=== PATIENT | male | born 1970 | race Caucasian/White ===

== ENCOUNTER 2020-01-03 06:49 | Emergency (ER) | payer SELFPAY ==
[2020-01-03 07:05] VITALS: BP 159/101; PULSE 73; RESP 20; TEMP 36.6; O2SAT 97
--- NOTE | 2020-01-03 07:17 | ED.UPPEXIN ---
HPI - Extremity Injury (Upper) General Chief Complaint: Extremity Injury, Upper Stated Complaint: arm pain Source: patient History of Present Illness HPI narrative: Right shoulder pain radiating down to wrist, onset 5 days ago, constant. Onset while laying down linda. Works construction, lifting drywall, et cetera. No activities make it worse. Putting hands behind head does not decrease the pain. Range of motion is not limited. He denies numbness or weakness in his arms or hands. Has not taken medicine for this. States he's never been told he had an elevated blood pressure Related Data Home Medications Medication Instructions Recorded Confirmed No Home Medications 01/03/20 01/03/20 Review of Systems Constitutional: Constitutional: Reports no additional constitutional complaints Musculoskeletal: Musculoskeletal: Reports no additional musculoskeletal complaints, Denies back pain, Denies arthralgias and Denies joint swelling Integumentary/Breasts: Skin/Breast: Denies rash Neurologic: Denies focal weakness and Denies numbness Comments: Denies numbness or pain in hands/wrist. [facility] Past Medical History Medical History (Updated 01/03/20 @ 07:30 by Ming De La Fuente MD) Patient denies significant medical history Family History Family History (Updated 01/03/20 @ 07:31 by Ming De La Fuente MD) Father No problems noted. Social History Social History (Updated 01/03/20 @ 07:32 by Ming De La Fuente MD) Smoking status: Never smoker Alcohol use details: denies Additional occupation/education comments: Construction Exam Narrative: Exam Narrative: . Const: General: no acute distress Neck: Neck: normal visual inspection and no lymphadenopathy Other: Full, painless neck ROM. No cervical spinous tenderness. Spurling's maneuver is negative. Chest: Chest palpation & inspection: normal inspection of the chest Skin: Rashes: no rashes Neuro: General: patient oriented x3 Other: No deltoid, arm, hand numbness to light touch. 5+ resisted shoulder ROM, resisted elbow and wrist flexion/extension, resisted abduction of fingers and thumb/index pinch. Extrem: General: normal to inspection and no edema Other: Tender only over the anterior subacromial joint. Full shoulder ROM. Flexion with internal rotation test is positive. Pain with resisted shoulder abduction at 120 degrees. No palpable crepitation. No pain with elbow flexion Course Course Emergency Course: Discussed dx. and tx. of rotator cuff tendinitis. Discussed hypertension and need to be on medicine. Pt. declined starting antihypertensive today. Vital Signs Vital signs: Vital Signs Temperature 36.6 C 01/03/20 07:05 Pulse Rate 73 01/03/20 07:05 Respiratory Rate 01/03/20 07:05 Blood Pressure 159/101 H 01/03/20 07:05 Pulse Oximetry 97 01/03/20 07:05 Temperature 36.6 C 01/03/20 07:05 Pulse Rate 73 01/03/20 07:05 Respiratory Rate 01/03/20 07:05 Blood Pressure 159/101 H 01/03/20 07:05 Pulse Oximetry 97 01/03/20 07:05 MDM - Extremity Injury (Upper) Differential Diagnosis Differential diagnosis: Likely other (DJD of right shoulder, cervical radiculopathy. ) Discharge Plan Discharge Clinical Impression: Rotator cuff injury, Hypertension, uncontrolled Patient Disposition: Home, Self-Care Condition: Stable Instructions: Antibiotic Form, Rotator Cuff Tendinitis (ED) Additional Instructions: Naproxen 220 mg over the counter. Take 2 tablets every 12 hours. If pain persists, take 2 every 8 hours. Follow up with Dr. Dozier within the next 5 days to discuss response, possible PT and starting antihypertensive. Advised to avoid painful activities, repeated lifting, or heavy lifting. Read handout. Prescriptions: No Action No Home Medications RF: 0 Interventions: Discharge Disposition Last Done: 01/03/20 07:05 Follow-up/Referrals: Tor Dozier MD [Primary Care
== END 2020-01-03 07:27 | disposition home or self-care (01) ==
PROVIDERS: Emergency Provider Family Medicine; PCP Internal Medicine
DX: M25.511 Pain in right shoulder (principal); S46.001A Unspecified injury of muscle(s) and tendon(s) of the rotator cuff of right shoulder, initial encounter; I10 Essential (primary) hypertension; X58.XXXA Exposure to other specified factors, initial encounter
CPT/HCPCS: 99282

== ENCOUNTER 2020-08-05 10:20 | Emergency (ER) | payer SELFPAY ==
[2020-08-05 10:29] VITALS: BP 157/97; PULSE 80; RESP 18; TEMP 36.9; O2SAT 97
[2020-08-05] MEDS: DACRIOSE EYE IRRIGATION 118 ML BOTTLE (10:42)
[2020-08-05] MEDS: TETRACAINE HCL 0.5% OPHTH SOLN 4 ML BTL 1 DROP LEFT EYE (10:45)
--- NOTE | 2020-08-05 10:57 | ED.EYEPROB ---
HPI - Eye Problem General Chief complaint: Eye Problems Stated complaint: Got something in eye Time Seen by Provider: 08/05/20 10:39 Source: patient Mode of arrival: ambulatory Limitations: no limitations History of Present Illness HPI Narrative: Don is a previously healthy man that presented to the ED with left eye pain. He was putting up a piece of plywood after cutting it when he looked up and got a painful sensation in his eye. He attempted to wash it out with several bottles of water with no affect. Next he drove himself to the ED. He has no vision changes. He has no other injuries or concerns. Related Data Allergies Allergy/AdvReac Type Severity Reaction Status Date / Time No Known Allergies Allergy Verified 08/05/20 10:28 Review of Systems Constitutional: Constitutional: Reports no additional constitutional complaints Eyes: Eyes: Reports as per HPI ENT: Reports system reviewed and no additional complaints, except as documented Cardiovascular: Cardiovascular: Reports no additional cardiovascular complaints Respiratory: Respiratory: Reports no additional respiratory complaints Gastrointestinal: Gastrointestinal: Reports no additional gastrointestinal complaints Genitourinary: Genitourinary: Reports no additional male genitourinary complaints Musculoskeletal: Musculoskeletal: Reports no additional musculoskeletal complaints Integumentary/Breasts: Skin/Breast: Reports system reviewed and no additional complaints, except as docu Neurologic: Reports system reviewed and no additional complaints, except as documented Psychiatric: Psychiatric: Reports no additional psychiatric complaints Endocrine: Endocrine: Reports no additional endocrine complaints Hematologic/Lymphatic: Hematologic/Lymphatic: Reports no additional hematologic/lymphatic complaints Allergic/Immunologic: Allergic/Immunologic: Reports no additional allergic/immunologic complaints [facility] Past Medical History Medical History Patient denies significant medical history Family History Family History Father No problems noted. Social History Social History Smoking status: Never smoker Additional occupation/education comments: Construction Exam Const: General: no acute distress and alert Orientation/consciousness: patient oriented x3 HENMT: Other: Normocephalic, atraumatic. Had conjunctival injection on the left. EOMI. PERRL. Vision grossly normal. No foreign body seen. Fluorescein eye exam reveal a small (2mm) corneal abraison a few mm superior to the edge of the pupil. No vertical streaks. No Taisha sign. No foreign body identified. Eyes: Conjunctivae: conjunctivae normal Pupils: Equal, round and reactive pupils present Neck: Neck: normal visual inspection Chest: Chest palpation & inspection: normal inspection of the chest Resp: Effort & Inspection: normal respiratory effort, not labored and not tachypneic Cardio: Rate: regular rate Skin: General skin exam: normal color Rashes: no rashes Neuro: General: patient oriented x3 and moves all extremities Extrem: General: normal to inspection Psych: Appearance: grossly normal Mental Status: mental status grossly normal Course Course Emergency Course: Don was seen and evaluated. An attempt was made to irrigate the eye but this could not be done due to discomfort. Next tetracaine eye drops were placed then the eye was copiously irrigated. A fluorescein eye exam was done which revealed an abrasion. A script was sent for cipro eye drops. He refused and eye patch. He was then discharged. He did not want us to make an eye Dr. appointment but he stated that he would make one on his own. Next he was discharged to f/u with his regular provider. Vital Signs Vital signs: Vital Signs Temperature 98.4 F
== END 2020-08-05 11:07 | disposition home or self-care (01) ==
PROVIDERS: Emergency Provider Family Medicine; PCP Internal Medicine
DX: S05.02XA Injury of conjunctiva and corneal abrasion without foreign body, left eye, initial encounter (principal)
CPT/HCPCS: 99283; A9270